=== PATIENT | female | born 1985 | race Caucasian/White ===

== ENCOUNTER 2023-11-04 05:12 | Inpatient (IN) | payer BC, MEDICAID ==
[~2023-11-04 05:12] MED LIST: Sodium Chloride 0.9% 10 ML Syringe FLUSH PRN
[2023-11-04] MEDS ORDERED: Metoclopramide 10 MG/2 ML SDV IVPUSH ONE (05:51)
[2023-11-04] MEDS ORDERED: Citric Acid/Sodium Citrate Solution 30 ML Cup PO ONE (05:52)
[2023-11-04 05:56] LABS: BASOPHILS PERCENT AUTO 0.4 % (0.0-1.0); EOSINOPHILS PERCENT AUTO 0.4 % (0.0-6.0); HEMATOCRIT 34.9 % (37.0-47.0); HEMOGLOBIN 11.1 gm/dl (12.0-16.0); IMMATURE GRAN ABSOLUTE AUTO 0.06 K/mm3 (0.00-0.05); IMMATURE GRAN PERCENT AUTO 0.8 % (0.0-0.4); LYMPHOCYTES ABSOLUTE AUTO 1.7 K/mm3 (1.0-4.8); LYMPHOCYTES PERCENT AUTO 21.5 % (24.0-44.0); MEAN CORPUSCULAR HEMOGLOBIN 27.1 pg (28.0-32.0); MEAN CORPUSCULAR HGB CONC 31.8 g/dl (32.0-36.0); MEAN CORPUSCULAR VOLUME 85.1 fl (83.0-99.0); MEAN PLATELET VOLUME 10.8 fl (9.4-12.3); MONOCYTES ABSOLUTE AUTO 0.6 K/mm3 (0.0-0.8); MONOCYTES PERCENT AUTO 7.3 % (0.0-8.0); NEUTROPHILS ABSOLUTE AUTO 5.3 K/mm3 (1.8-7.7); NEUTROPHILS PERCENT AUTO 69.6 % (41.0-71.0); NRBC ABSOLUTE 0.02 (0.00-0.02); NRBC PERCENT 0.3 % (0.0-0.2); PLATELET COUNT,PLT 204 K/mm3 (150-400); WHITE BLOOD CELL COUNT,WBC 7.67 K/mm3 (3.9-11.3)
[2023-11-04] MEDS ORDERED: Lactated Ringers 1,000 ML IV SCH (06:00)
[2023-11-04] MEDS: Lactated Ringers 1,000 ML IV SCH (06:26)
[2023-11-04] MEDS ORDERED: Oxytocin 10 Units/1 ML SDV ONE (06:44)
[2023-11-04] MEDS ORDERED: Ketorolac 30 MG/ML SDV ONE (06:44)
[2023-11-04] MEDS ORDERED: Ondansetron 4 MG/2 ML SDV ONE (06:44)
[2023-11-04] MEDS ORDERED: Morphine PF 10 MG/10 ML SDV ONE (06:45)
[2023-11-04] MEDS ORDERED: fentaNYL 100 MCG/2 ML SDV ONE (06:45)
[2023-11-04] MEDS ORDERED: ceFAZolin 2 GM Vial ONE (06:48)
[2023-11-04] MEDS ORDERED: ceFAZolin 2 GM in Sodium Chloride 0.9% 50 ML IV ONE (07:00)
[2023-11-04] MEDS ORDERED: Oxytocin/Lactated Ringers 30 UNIT/500 ML BAG IV SCH (07:00)
[2023-11-04] MEDS: Citric Acid/Sodium Citrate Solution 30 ML Cup PO ONE (07:01)
[2023-11-04] MEDS: Metoclopramide 10 MG/2 ML SDV IVPUSH ONE (07:01)
[2023-11-04] MEDS ORDERED: Bupivacaine 0.5% 30 ML SDV ONE (07:14)
[2023-11-04] MEDS ORDERED: Bupivacaine 0.75%/D5W 2 ML Amp ONE (07:25)
[2023-11-04] MEDS ORDERED: Lactated Ringers 1,000 ML ONE ×2 (07:58→08:14)
[2023-11-04] MEDS ORDERED: Phenylephrine 1% 10 MG/ML SDV ONE (08:00)
[2023-11-04] MEDS ORDERED: diphenhydrAMINE 50 MG/ML SDV IVPUSH PRN ×2 (08:05→10:48)
[2023-11-04] MEDS ORDERED: Ondansetron 4 MG/2 ML SDV IVPUSH PRN (08:05)
[2023-11-04] MEDS ORDERED: fentaNYL 100 MCG/2 ML SDV IVPUSH PRN (08:05)
[2023-11-04] MEDS ORDERED: Sodium Chloride 0.9% 10 ML Syringe FLUSH SCH (09:00)
[2023-11-04] MEDS ORDERED: Naloxone 0.4 MG/ML SDV IVPUSH PRN (10:48)
[2023-11-04] MEDS ORDERED: Sodium Chloride 0.9% 10 ML Syringe FLUSH PRN (10:48)
[2023-11-04] MEDS ORDERED: Acetaminophen/oxyCODONE 325-5 MG Tab PO PRN ×2 (10:48)
[2023-11-04] MEDS: Dextrose 5%-Lactated Ringers 1,000 ML IV SCH (13:07)
[2023-11-04] MEDS: Ondansetron 4 MG/2 ML SDV IV PRN (14:07)
[2023-11-04] MEDS: Ketorolac 30 MG/ML SDV IVPUSH SCH (14:24)
[2023-11-05 06:18] LABS: BASOPHILS PERCENT AUTO 0.4 % (0.0-1.0); EOSINOPHILS ABSOLUTE AUTO 0.1 K/mm3 (0.0-0.4); HEMATOCRIT 30.1 % (37.0-47.0); HEMOGLOBIN 9.5 gm/dl (12.0-16.0); IMMATURE GRAN ABSOLUTE AUTO 0.05 K/mm3 (0.00-0.05); IMMATURE GRAN PERCENT AUTO 0.7 % (0.0-0.4); LYMPHOCYTES ABSOLUTE AUTO 1.4 K/mm3 (1.0-4.8); LYMPHOCYTES PERCENT AUTO 19.8 % (24.0-44.0); MEAN CORPUSCULAR HEMOGLOBIN 27.6 pg (28.0-32.0); MEAN CORPUSCULAR HGB CONC 31.6 g/dl (32.0-36.0); MEAN CORPUSCULAR VOLUME 87.5 fl (83.0-99.0); MEAN PLATELET VOLUME 10.8 fl (9.4-12.3); MONOCYTES ABSOLUTE AUTO 0.6 K/mm3 (0.0-0.8); MONOCYTES PERCENT AUTO 8.7 % (0.0-8.0); NEUTROPHILS ABSOLUTE AUTO 4.8 K/mm3 (1.8-7.7); NEUTROPHILS PERCENT AUTO 69.4 % (41.0-71.0); NRBC ABSOLUTE 0.02 (0.00-0.02); NRBC PERCENT 0.3 % (0.0-0.2); PLATELET COUNT,PLT 166 K/mm3 (150-400); RED BLOOD CELL COUNT 3.44 M/mm3 (4.10-5.30); WHITE BLOOD CELL COUNT,WBC 6.93 K/mm3 (3.9-11.3)
[2023-11-05] MEDS ORDERED: Ibuprofen 600 MG Tab PO PRN (08:30)
[2023-11-05] MEDS: Magnesium Hydroxide 400 MG/5 ML Susp 30 ML Cup PO ONE (19:50)
[2023-11-06] MEDS: Docusate Sodium 100 MG Cap PO PRN (08:24)
== END 2023-11-06 11:36 | disposition home or self-care (01) | DRG 540 ==
LOC: JD.OB 05:12
PROVIDERS: ADMIT Obstetrics & Gynecology; ATTEND Obstetrics & Gynecology
PROC: 10D00Z1 Extraction of Products of Conception, Low, Open Approach (ICD-10-PCS; principal; 2023-11-04 08:00)
DX: O32.1XX0 Maternal care for breech presentation, not applicable or unspecified (principal); O14.14 Severe pre-eclampsia complicating childbirth; Z37.0 Single live birth; O34.211 Maternal care for low transverse scar from previous cesarean delivery; O36.63X0 Maternal care for excessive fetal growth, third trimester, not applicable or unspecified; Z3A.36 36 weeks gestation of pregnancy; Z87.891 Personal history of nicotine dependence; Z91.040 Latex allergy status; Z3A.37 37 weeks gestation of pregnancy; Z98.891 History of uterine scar from previous surgery
CPT/HCPCS: 36415; 59025; 85025; 86592; 86850; 86900; 86901; 94762; A9270-GY; J0665; J0690; J1885; J2274; J2371; J2405; J2590; J2765; J3010; J3490; J7120; J7121